=== PATIENT | female | born 1995 | race Caucasian/White ===

== ENCOUNTER → 2016-04-14 | Day surgery (SDC) | payer OTHER ==
[~2016-04-14] VITALS: Ht 157.5 cm; Wt 87.1 kg
[~2016-04-14] MED LIST: LIDOCAINE 2% INJ 100 MG/5 ML SDV (FOR ANES.) As Ordered ONE; LR 1,000 ML IV SCH; MIDAZOLAM INJ 2 MG/2 ML VIAL (J2250) As Ordered ONE; OMEP40CA2 PO; ONDANSETRON 4MG/2ML VIAL (J2405) As Ordered ONE; ONDANSETRON 4MG/2ML VIAL (J2405) IV PRN; PERCOCET 5MG/325MG TAB As Ordered ONE; PROPOFOL 200 MG/20 ML VIAL As Ordered ONE; ROCURONIUM BROMIDE 50 MG/5 ML VIAL As Ordered ONE; SPRI28TA PO; dexameTHASONE 4 MG/ML 1ML VIAL (J1100) IV ONE; fentaNYL 100 MCG/2 ML INJECTION (J3010) As Ordered ONE; fentaNYL 100 MCG/2 ML INJECTION (J3010) IV PRN
[2016-04-14 12:33] LABS: CONTROL LINE UCG INT CTR LINE PRESENT
[2016-04-14] MEDS: PERCOCET 5MG/325MG TAB PO PRN ×2 (14:38→16:13)
[2016-04-14 16:00] VITALS: BP 150/90
== END | disposition home or self-care (01) ==
LOC: M SDC 10:55
PROVIDERS: ATTEND Otolaryngology
DX: J35.1 Hypertrophy of tonsils (principal); Z88.0 Allergy status to penicillin; Z79.899 Other long term (current) drug therapy; K21.9 Gastro-esophageal reflux disease without esophagitis
CPT/HCPCS: 42826; 84703; 88302; J2250; J2405; J3010

== ENCOUNTER → 2016-07-27 | Outpatient (CLI) | payer OTHER ==
[~2016-07-27] MED LIST changes: -LIDOCAINE 2% INJ 100 MG/5 ML SDV (FOR ANES.) As Ordered ONE; -LR 1,000 ML IV SCH; -MIDAZOLAM INJ 2 MG/2 ML VIAL (J2250) As Ordered ONE; -ONDANSETRON 4MG/2ML VIAL (J2405) As Ordered ONE; -ONDANSETRON 4MG/2ML VIAL (J2405) IV PRN; -PERCOCET 5MG/325MG TAB As Ordered ONE; -PROPOFOL 200 MG/20 ML VIAL As Ordered ONE; -ROCURONIUM BROMIDE 50 MG/5 ML VIAL As Ordered ONE; -dexameTHASONE 4 MG/ML 1ML VIAL (J1100) IV ONE; -fentaNYL 100 MCG/2 ML INJECTION (J3010) As Ordered ONE; -fentaNYL 100 MCG/2 ML INJECTION (J3010) IV PRN
--- NOTE | 2016-07-27 13:25 | REP ---
LIMITED ABDOMINAL ULTRASOUND: HISTORY: Abdominal pain. Calcifications are present in the gallbladder consistent with cholelithiasis. The gallbladder wall measures 3.2 mm. The common bile duct measures 2.8 mm. The liver is normal in echogenicity. The pancreas is not seen due to overlying bowel gas. The right kidney is normal in echogenicity. The right kidney measures 5.5 cm in transverse x 5.7 cm in AP x 11.2 cm in cephalocaudal dimensions. There is no hydronephrosis or mass. IMPRESSION: Cholelithiasis. Signed by Gurinder Aguirre MD 07/27/2016 01:39 P
== END ==
LOC: M RAD 12:36
PROVIDERS: ATTEND Family Medicine
DX: K80.20 Calculus of gallbladder without cholecystitis without obstruction (principal)

== ENCOUNTER → 2016-09-28 | Outpatient (CLI) | payer OTHER ==
[2016-09-28 17:33] LABS: ALBUMIN 3.3 GM/DL (3.2-5.2); ALBUMIN/GLOBULIN RATIO 0.94 (1.00-1.93); ALKALINE PHOSPHATASE 51 U/L (45-117); ALT/SGPT 16 U/L (12-78); ANION GAP 7 MEQ/L (8-16); AST/SGOT 11 U/L (15-37); BILIRUBIN,TOTAL 0.4 MG/DL (0.2-1.0); BLOOD UREA NITROGEN 9 MG/DL (7-18); CALCIUM LEVEL 8.5 MG/DL (8.5-10.1); CARBON DIOXIDE LEVEL 27 MEQ/L (21-32); CHLORIDE LEVEL 105 MEQ/L (98-107); CREATININE FOR GFR 0.66 MG/DL (0.55-1.02); GLUCOSE, FASTING 84 MG/DL (70-105); POTASSIUM SERUM 4.1 MEQ/L (3.5-5.1); SODIUM LEVEL 139 MEQ/L (136-145); TOTAL PROTEIN 6.8 GM/DL (6.4-8.2)
== END ==
LOC: M LAB 15:52
PROVIDERS: ATTEND Anesthesiology
DX: K82.9 Disease of gallbladder, unspecified (principal)

== ENCOUNTER → 2016-09-30 | Day surgery (SDC) | payer OTHER ==
[~2016-09-30] VITALS: Ht 157.5 cm; Wt 86.2 kg
[~2016-09-30] MED LIST changes: +ACETAMINOPHEN TAB 650MG DOSE (2X325MG) PO PRN; +BUPIVACAINE HCL 0.25% 30 ML VIAL As Ordered ONE; +CONRAY-60 60% 50ML VIAL (Q9961) As Ordered ONE; +GLYCOPYRROLATE INJ 0.2 MG/ML 2 ML VIAL As Ordered ONE; +IBUPROFEN 600 MG TAB PO PRN; +LIDOCAINE 2% INJ 100 MG/5 ML SDV (FOR ANES.) As Ordered ONE; +LIDOCAINE 2% JELLY 30 ML As Ordered ONE; +LR 1,000 ML IV SCH; +MEPERIDINE INJ 25 MG/ML VIAL (J2175) IV PRN; +METOCLOPRAMIDE INJ 10MG/2ML VIAL (J2765) As Ordered ONE; +METOCLOPRAMIDE INJ 10MG/2ML VIAL (J2765) IV PRN; +MIDAZOLAM INJ 2 MG/2 ML VIAL (J2250) As Ordered ONE; +NEOSTIGMINE 1MG/ML 5 ML SYRINGE (J2710) As Ordered ONE; +NORCO, ANEXSIA 5/325MG TABLET (HYDROcodone/ACETAMINOPHEN) PO PRN; +ONDANSETRON 4MG/2ML VIAL (J2405) IV PRN; +PERCOCET 5MG/325MG TAB PO PRN; +PROPOFOL 200 MG/20 ML VIAL As Ordered ONE; +ROCURONIUM BROMIDE 50 MG/5 ML VIAL/SYRINGE As Ordered ONE; +fentaNYL 100 MCG/2 ML INJECTION (J3010) As Ordered ONE; +fentaNYL 100 MCG/2 ML INJECTION (J3010) IV PRN; +fentaNYL 250 MCG/5 ML INJECTION (J3010) As Ordered ONE
[2016-09-30 07:01] LABS: CONTROL LINE UCG INT CTR LINE PRESENT
[2016-09-30 12:10] VITALS: BP 125/80
--- NOTE | 2016-10-01 07:50 | RO ---
DATE OF PROCEDURE: 09/30/2016 PREPROCEDURE DIAGNOSIS: Symptomatic gallstones. POSTPROCEDURE DIAGNOSIS: Symptomatic gallstones. PROCEDURE PERFORMED: Laparoscopic cholecystectomy. SURGEON: Dr. Kaushal Aguila ANESTHESIA: General. INDICATIONS FOR THE PROCEDURE: Patient is a very pleasant 21-year-old woman with a history of episodic right upper quadrant pain consistent with biliary colic. Ultrasound confirmed cholelithiasis, and she is now for a laparoscopic cholecystectomy. DESCRIPTION OF PROCEDURE: Operative procedure: The patient was placed under general endotracheal anesthesia. The patient's abdomen was prepped and draped in a sterile fashion. 0.25% Marcaine was infiltrated at each of the trocar sites as needed. A short supraumbilical midline incision was made and deepened through the subcutaneous tissues. The fascia was opened along the midline, and the peritoneum was opened bluntly. A Darshana cannula was inserted. The abdomen was insufflated with carbon dioxide gas. A laparoscopic was inserted. Initial examination revealed the somewhat fibrotic-appearing gallbladder in its normal location in the subhepatic space. The visualized portions of the liver and stomach and small and large bowel were normal. The patient was tilted to a reverse Trendelenburg position. Two 3 mm trocars were placed in the right upper quadrant and a third 3 mm trocar was placed in the left upper quadrant. Graspers were inserted, and the gallbladder was grasped and elevated. There were a few adhesions identified between the gallbladder and the duodenum. These were carefully lysed using the cautery with care to avoid injury to the duodenum. Dissection was then carried out in the region of the gallbladder neck, primarily using the hook cautery. The cystic duct and the cholecystic artery were both clearly identified. Using a 5 mm clip press cleaner through the Springer site, the cholecystic artery was doubly clipped and divided. After further dissection of the cystic duct, the cystic duct was also doubly clipped and divided. The gallbladder was then dissected free from the gallbladder bed using cautery dissection. The gallbladder was not perforated in the course of dissection. The gallbladder was placed in an Endopouch. The right upper quadrant was irrigated and inspected. There was no evidence of bleeding. The patient was returned to a flat position. The abdomen was deflated and the trocars were all removed. The gallbladder was recovered through the Springer site which necessitated extending the incision slightly in the fascia to allow the stones to pass. Palpation revealed several large stones up to about 2 to 2.5 cm in diameter. Gallbladder was sent for permanent pathology. The fascia at the Springer site was closed with interrupted simple sutures of #2-0 Vicryl. The skin incisions were all closed with buried #5-0 Vicryl and Steri-Strips. Light dressings were applied. The patient tolerated the procedure well without apparent complication. She was awakened in the operating room, extubated, and moved to the recovery room in stable condition. [place]
== END | disposition home or self-care (01) ==
LOC: M SDC 06:03
PROVIDERS: ATTEND Surgery
DX: K80.18 Calculus of gallbladder with other cholecystitis without obstruction (principal); R01.1 Cardiac murmur, unspecified; Z88.0 Allergy status to penicillin; Z79.899 Other long term (current) drug therapy
CPT/HCPCS: 47562; 84703; 88304; J2250; J2405; J2710; J2765; J3010

== ENCOUNTER → 2017-11-06 | Outpatient (REF) | payer OTHER ==
[2017-11-06 21:27] LABS: CHLAMYDIA DNA AMPLIFICATION NEGATIVE (NEGATIVE); GC DNA AMPLIFICATION NEGATIVE (NEGATIVE)
== END ==
LOC: M LAB REF 17:27
DX: Z11.3 Encounter for screening for infections with a predominantly sexual mode of transmission (principal)